=== PATIENT | male | born 1985 | race Two or more races ===

== ENCOUNTER 2022-05-17 21:31 | Emergency (ER) | payer OTHER ==
[~2022-05-17] VITALS: Ht 170.2 cm; Wt 81.0 kg
[2022-05-17 22:51] LABS: Basophils # (auto) 0 10 ^3/uL (0-0.2); Basophils % (auto) 0.1 % (0.0-2.0); Eosinophils # (auto) 0 10 ^3/uL (0-0.8); Eosinophils % (auto) 0.2 % (0.0-7.0); Hematocrit 45.8 % (41.0-53.0); Hemoglobin 16.2 g/dL (13.5-17.5); Lymphocytes # (auto) 1.5 10 ^3/uL (0.4-5.4); Lymphocytes % (auto) 11.7 % (10.0-50.0); Mean Corpuscular Hemoglobin 30.1 pg (28.0-32.0); Mean Corpuscular Hgb Conc. 35.4 g/dL (32.0-36.0); Mean Corpuscular Volume 85.2 fL (80.0-100.0); Monocytes # (auto) 0.5 10 ^3/uL (0-1.3); Monocytes % (auto) 3.9 % (0.0-12.0); Neutrophils % (auto) 84.1 % (37.0-80.0); Nucleated Red Blood Cells % 0.1 %; Red Blood Cells 5.38 10^6/uL (4.5-5.90); Red Cell Distribution Width 14.2 % (11.8-14.3); White Blood Cell 13.1 10^3/uL (4.4-10.8)
[2022-05-17 22:55] LABS: Urine Bacteria NONE SEEN /hpf (None Seen); Urine Blood Negative /uL (Negative); Urine Mucus FEW (None Seen); Urine Specific Gravity 1.029 (1.001-1.035); Urine WBC <1 /hpf (0 - 3)
[2022-05-17 23:08] LABS: Albumin 4.2 g/dL (3.4-5.0); BUN/Creatinine Ratio 14.4 (10.0-20.0); Calcium 9.1 mg/dL (8.5-10.1); Potassium 4.1 mmol/L (3.5-5.1)
[2022-05-17 23:10] LABS: Bilirubin, Total 0.4 mg/dL (0.2-1.0); Total Protein 8.2 g/dL (6.4-8.2)
[2022-05-17] MEDS ORDERED: IOHEXOL 300 MG/ML 100ML BOTTLE IJ ONE (23:45)
[2022-05-18] MEDS ORDERED: CEPH-510 PO (10:19)
[2022-05-18] MEDS ORDERED: ACET-1079 PO (11:27)
[2022-05-18] MEDS ORDERED: HYDROcodone-ACET 10/325MG TAB PO ONE (11:45)
[2022-05-18 12:17] VITALS: BP 129/90
== END 2022-05-18 12:18 | disposition home or self-care (01) ==
LOC: ER 21:31
DX: R10.31 Right lower quadrant pain (principal); R10.32 Left lower quadrant pain
CPT/HCPCS: 36415; 74177; 80053; 81001; 83690; 85025; 99285; Q9967